=== PATIENT | male | born 1970 | race Caucasian/White ===

== ENCOUNTER 2024-10-21 21:31 | Emergency (ER) | payer BC, SELFPAY ==
--- NOTE | ~2024-10-21 | CT_ITS ---
CLINICAL HISTORY: abscess left upper thigh CT pelvis with contrast Comparison: CT - CT PELVIS W IV CON - 10/22/24 00:47 EST Findings: Pelvic contents unremarkable. Normal appendix. No acute fracture. A focal region of subcutaneous fat stranding and mild hypodensity measures 3.2 x 1.7 cm in the medial left upper thigh. The surrounding subcutaneous fat is infiltrated or edematous. No drainable or organized fluid collection identified. IMPRESSION: 1. No drainable or organized fluid collection. 2. Area of focal hypodensity in the subcutaneous fat of the medial left thigh, possibly phlegmon or developing abscess. This document has been electronically signed by: Turner Tenorio MD, PHD on 10/22/2024 02:17:07
[2024-10-21 21:55] VITALS: BP 143/77; PULSE 115; RESP 18; TEMP 37.2; O2SAT 95; BMI 38.4
[2024-10-21 22:23] LABS: Hematocrit 44.8 % (42.0-52.0); Hemoglobin 15.9 g/dl (14.0-18.0); Mean Corpuscular HGB Conc 35.5 g/dl (31.0-36.0); Mean Corpuscular Hemoglobin 33.1 pg (27.0-33.0); Mean Corpuscular Volume 93.3 fL (80.0-98.0); Mean Platelet Volume 9.4 fL (9.4-12.4); Platelet Count 281 X10*3/uL (160-400); Red Cell Distribution Width 13.9 % (11.0-16.0)
[2024-10-21 22:36] LABS: Albumin Level 4.2 g/dL (3.5-5.0); Alkaline Phosphatase 64 U/L (39-117); Anion Gap 12 (12-20); Aspartate Amino Transferase 18 U/L (5-37); Bilirubin Total 0.3 mg/dL (0.0-1.0); Blood Urea Nitrogen 14 mg/dL (9-16); Calcium 8.8 mg/dL (8.4-10.2); Carbon Dioxide 23 mmol/L (22-29); Chloride 109 mmol/L (96-108); Creatinine Clr Calc Pharmacy 153.4; Estimated Glomerular Filt Rate > 60; Glucose Random 213 mg/dL (60-115); Potassium 4.3 mmol/L (3.3-5.1); Sodium 140 mmol/L (135-145); Total Protein 7.1 g/dL (6.5-8.0)
[2024-10-21 22:47] LABS: Alanine Aminotransferase 29 U/L (0-40)
[2024-10-22 00:07] VITALS: BP 130/70; PULSE 105; RESP 16; TEMP 36.8; O2SAT 96
[2024-10-22] MEDS: iohexoL 350 MG/ML 100 ML INFUS..BTL IV (01:02)
[2024-10-22] MEDS: 0.9 % Sodium Chloride 1,000 ML 999 ML IV (01:29)
[2024-10-22 01:53] VITALS: BP 135/86; PULSE 102; RESP 18; TEMP 36.8; O2SAT 95
--- NOTE | 2024-10-22 02:37 | ED_ITS ---
HPI - General Adult General Chief complaint: Skin/Abscess/Foreign Body Stated complaint: left leg boil/diabetic Time Seen by Provider: 10/21/24 23:16 Source: patient, RN notes reviewed and old records reviewed Mode of arrival: ambulatory Limitations: no limitations History of Present Illness ED Provider: Tucker HPI narrative: 54-year-old male past medical history significant for diabetes presents for evaluation of an abscess to his left upper leg. Patient reports he noticed a small pimple about 2 weeks ago to his left upper/inner thigh He reports a few days ago he ?popped it on my own. ? He states since then the redness has spread, he has had increasing pain especially with walking He does not have any pain to his scrotum or swelling to his scrotum The patient reports subjective fevers and chills but did not take his temperature His pain is 8/10, achy no other complaints or concerns at this time Related Data Previous Rx's ?Medication ?Instructions ?Recorded cephalexin 500 mg tablet 500 mg PO QID #40 tabs 10/22/24 doxycycline hyclate 100 mg tablet 100 mg PO BID #20 tabs 10/22/24 Allergies Allergy/AdvReac Type Severity Reaction Status Date / Time varenicline [From CHANTIX] Allergy Unknown UNKNOWN Unverified 10/21/24 21:57 Review of Systems 2 Constitutional: Constitutional: Reports body ache(s), Reports chills and Reports fever(s) Eyes: Eyes: Denies blurry vision ENT: Denies vertigo Cardiovascular: Cardiovascular: Denies chest pain and Denies dyspnea Respiratory: Respiratory: Denies cough and Denies dyspnea Gastrointestinal: Gastrointestinal: Denies abdominal pain, Denies nausea and Denies vomiting Musculoskeletal: Musculoskeletal: Denies back pain Integumentary/Breasts: Skin/Breast: Reports erythema, Denies rash and Reports sores Neurologic: Denies vertigo Psychiatric: Psychiatric: Denies anxiety PMFSH Social History Social History Advance Directives: No Advance Directives Information Provided: Yes Physical Exam ED Vital Signs: Vital Signs - 24 hr 10/21/24 21:55 10/22/24 00:07 10/22/24 01:53 Temperature 98.9 F 98.3 F 98.3 F Pulse Rate 115 H 105 H 102 H Respiratory Rate 18 16 18 Blood Pressure 143/77 H 130/70 135/86 Pulse Oximetry 95 96 95 Oxygen Delivery Method Room Air Room Air Room Air BMI result Body Mass Index 38.4 Const General: healthy appearing, comfortable, no acute distress, alert and awake Nutritional Appearance: well nourished Orientation/consciousness: patient oriented x3 HENMT Head: Yes normocephalic and Yes atraumatic Eyes Eyelids: Yes eyelids normal Conjunctivae: conjunctivae normal Sclerae: sclerae normal Corneas: corneas normal Pupils: Equal, round and reactive pupils present EOM: EOMs intact bilaterally Neck Neck: Yes full ROM Resp Effort & Inspection: normal respiratory effort, able to speak in complete sentences and not labored Cardio Rate: regular rate Rhythm: regular rhythm GI Inspection: No distended Palpation (GI): Soft to palpation, not firm, nontender, no guarding and not rigid Skin Other: Patient has a large area to the left upper, inner thigh, approximately 6-7 cm in diameter of erythema with significant induration. There is no fluctuance. This is tender to palpation. This does not extend to the scrotum General skin exam: elasticity normal Neuro General: patient oriented x3 Cranial nerves: Yes Equal, round and reactive pupils present and Yes Bilaterally intact EOM present Cognition (Neuro): normal cognition Extrem Other: Moving all extremities well without any obvious deformities Medications Administered Discontinued Medications Generic Name Dose Route Start Last Admin Trade Name Freq PRN Reason Stop Dose Admin Sodium Chloride 1,000 mls @ 999 mls/hr 10/21/24 23:45 10/22/24 01:29 Ns IV 10/22/24 00:45 999 mls/hr .Q1H1M CONSUELO Administration Iohexol 100 ml 10/22/24 01:01 10/22/24 01:02 Iohexol 350 Mg/Ml 100 Ml Infus..Btl IV 10/22/24 01:02 100 ml ONCE ONE Administration Medical Decision Making Medical Decision Making MDM Narrative: 54-year-old male with past medical history significant for diabetes presents for evaluation of an abscess to his left upper thigh. Her what subjective fevers and chills but he is [place]febrile. [place] [address]. He was mildly tachycardic which could be related to his level of pain as well as the infection. However his lactate came back within normal limits before he received any IV fluids. He does not meet sepsis criteria. A CT scan was obtained to evaluate for abscess, deep infection and to rule out necrotizing fasciitis. The CT scan shows no definitive abscess or free air. He will be given doxycycline and cephalexin and he will be discharged. I gave him strict return precautions. Differential Diagnosis Differential Diagnoses: The differential diagnosis associated with the presentation includes Cellulitis Abscess Necrotizing fasciitis Maria R's gangrene Sepsis Lab Data MDM Lab Attestation statement: I reviewed [place] [address] with a left shift. No significant anemia. Normal platelet count. No electrolyte abnormalities. The patient is a diabetic with a glucose of 213. There was no evidence of DKA 10/21/24 22:17 10/21/24 22:17 Labs: Lab Results 10/21/24 10/22/24 Range/Units 22:17 00:47 WBC 13.0 H (4.8-10.8) X10*3/uL RBC 4.80 (4.60-5.80) X10*6/uL Hgb 15.9 (14.0-18.0) g/dl Hct 44.8 (42.0-52.0) % MCV 93.3 (80.0-98.0) fL MCH 33.1 H (27.0-33.0) pg MCHC 35.5 (31.0-36.0) g/dl RDW 13.9 (11.0-16.0) % Plt Count 281 (160-400) X10*3/uL MPV 9.4 (9.4-12.4) fL Absolute Nucleated RBC 0.000 (0.0-0.012) X10*3/uL Nucleated RBC % (auto) 0.0 (0.0-0.2) /100WBC Sodium 140 (135-145) mmol/L Potassium 4.3 (3.3-5.1) mmol/L Chloride 109 H (96-108) mmol/L Carbon Dioxide 23 (22-29) mmol/L Anion Gap 12 (12-20) BUN 14 (9-16) mg/dL Creatinine 0.78 (0.5-1.4) mg/dL Estim Creat Clear Calc 153.4 Estimated GFR > 60 Random Glucose 213 H (60-115) mg/dL Lactic Acid 1.0 (0.5-2.0) mmol/L Calcium 8.8 (8.4-10.2) mg/dL Total Bilirubin 0.3 (0.0-1.0) mg/dL AST 18 (5-37) U/L ALT 29 (0-40) U/L Alkaline Phosphatase 64 (39-117) U/L Total Creatine Kinase 86 (38-174) U/L Total Protein 7.1 (6.5-8.0) g/dL Albumin 4.2 (3.5-5.0) g/dL Radiology Impression Discussion of test interpretation with radiology: I have reviewed the radiologist's reading. Radiologist Impression: Findings: Pelvic contents unremarkable. Normal appendix. No acute fracture. A focal region of subcutaneous fat stranding and mild hypodensity measures 3.2 x 1.7 cm in the medial left upper thigh. The surrounding subcutaneous fat is infiltrated or edematous. No drainable or organized fluid collection identified. IMPRESSION: 1. No drainable or organized fluid collection. 2. Area of focal hypodensity in the subcutaneous fat of the medial left thigh, possibly phlegmon or developing abscess. This document has been electronically signed by: Turner Tenorio MD, PHD on 10/22/2024 02:17:07 Discharge Plan Discharge Clinical Impression: Cellulitis Patient Disposition: Home, Self-Care Instructions: Cellulitis (ED) Additional Instructions: Your CT scan did not show any obvious drainable collection. Take both antibiotics as described for cellulitis. You may apply warm compresses every 4 hours. Follow-up with your primary doctor, return for new or worsening symptoms Prescriptions: New cephalexin 500 mg tablet 500 mg PO QID Qty: 40 0RF doxycycline hyclate 100 mg tablet 100 mg PO BID Qty: 20 0RF Print Language: Vietnamese
[2024-10-22] MEDS: cephALEXin 500 MG CAPSULE PO (03:00)
[2024-10-22] MEDS: Doxycycline Monohydrate 100 MG CAPSULE PO (03:00)
[2024-10-22 03:02] VITALS: BP 148/93; PULSE 104; RESP 20; TEMP 36.7; O2SAT 96
== END 2024-10-22 03:07 | disposition home or self-care (01) ==
PROVIDERS: Physician Assistant; Emergency Provider Internal Medicine; PCP Physician Assistant Medical
DX: L03.116 Cellulitis of left lower limb (principal); R00.0 Tachycardia, unspecified; E11.9 Type 2 diabetes mellitus without complications
CPT/HCPCS: 36415; 72193; 80053; 82550; 83605; 85027; 87040; 99283; 99284; Q9967

== ENCOUNTER → 2024-10-22 | Outpatient (BNV) | payer BC, SELFPAY | PROVIDERS: Emergency Provider Internal Medicine; PCP Physician Assistant Medical; Visit Provider General Practice | DX: L02.416 Cutaneous abscess of left lower limb (principal) | CPT/HCPCS: 72193 ==